=== PATIENT | male | born 1970 | race Caucasian/White ===

== ENCOUNTER 2023-11-15 16:59 | Outpatient (RCR) | payer BC, SELFPAY | END 2023-11-15 23:59 | disposition home or self-care (01) | LOC: RPT 16:59 | PROVIDERS: ATTENDING PHYSICIAN Orthopaedic Surgery Hand Surgery; FAMILY PHYSICIAN Family Medicine | DX: M77.12 Lateral epicondylitis, left elbow (principal); Z73.6 Limitation of activities due to disability; M25.512 Pain in left shoulder; M25.522 Pain in left elbow | CPT/HCPCS: 97110; 97140; 97162 ==

== ENCOUNTER 2023-12-13 17:15 | Outpatient (RCR) | payer BC, SELFPAY | END 2023-12-13 23:59 | disposition home or self-care (01) | LOC: RPT 17:15 | PROVIDERS: ATTENDING PHYSICIAN Orthopaedic Surgery Hand Surgery; FAMILY PHYSICIAN Family Medicine | DX: M77.12 Lateral epicondylitis, left elbow (principal); Z73.6 Limitation of activities due to disability | CPT/HCPCS: 97110; 97140 ==

== ENCOUNTER → 2024-01-06 09:06 | Outpatient (REF) | payer BC, SELFPAY | LOC: MRI 09:06 | PROVIDERS: ATTENDING PHYSICIAN Orthopaedic Surgery Hand Surgery; FAMILY PHYSICIAN Family Medicine | DX: M25.512 Pain in left shoulder (principal) | CPT/HCPCS: 73221 ==

== ENCOUNTER 2024-06-17 06:24 | Day surgery (SDC) | payer BC, SELFPAY ==
[2024-06-11 14:16] VITALS: BMI 37.0
[2024-06-17] VITALS (7 sets, daily range): BP systolic 104–134; BP diastolic 70–84; BMI 37.0
[2024-06-17] MEDS: CELEBREX 200 MG PO (13:00)
[2024-06-17] MEDS: TYLENOL 1000 MG PO (13:00)
[2024-06-17] MEDS: DILAUDID 0.5 MG IV (16:29)
== END 2024-06-17 17:40 | disposition home or self-care (01) ==
LOC: SDS 06:24
PROVIDERS: ATTENDING PHYSICIAN Orthopaedic Surgery Hand Surgery; FAMILY PHYSICIAN Family Medicine
PROC: 0LS44ZZ Reposition Left Upper Arm Tendon, Percutaneous Endoscopic Approach (ICD-10-PCS; 2024-06-17)
PROC: 0PBB4ZZ Excision of Left Clavicle, Percutaneous Endoscopic Approach (ICD-10-PCS; 2024-06-17)
PROC: 0RNK4ZZ Release Left Shoulder Joint, Percutaneous Endoscopic Approach (ICD-10-PCS; 2024-06-17)
DX: M75.42 Impingement syndrome of left shoulder (principal); M75.112 Incomplete rotator cuff tear or rupture of left shoulder, not specified as traumatic; S43.432A Superior glenoid labrum lesion of left shoulder, initial encounter; X58.XXXA Exposure to other specified factors, initial encounter; M19.012 Primary osteoarthritis, left shoulder
CPT/HCPCS: 29827; 29826; 29824; 29823; 29828; 36415; 93005; C1713; C1763

== ENCOUNTER 2024-07-16 18:59 | Outpatient (RCR) | payer BC, SELFPAY | END 2024-07-16 23:59 | disposition home or self-care (01) | LOC: RPT 18:59 | PROVIDERS: ATTENDING PHYSICIAN Student in an Organized Health Care Education/Training Program; FAMILY PHYSICIAN Family Medicine | DX: Z47.89 Encounter for other orthopedic aftercare (principal); Z73.6 Limitation of activities due to disability; M25.512 Pain in left shoulder; M62.81 Muscle weakness (generalized) | CPT/HCPCS: 97010; 97110; 97140; 97162 ==

== ENCOUNTER 2024-08-18 17:55 | Outpatient (RCR) | payer BC, SELFPAY | END 2024-08-18 23:59 | disposition home or self-care (01) | LOC: RPT 17:55 | PROVIDERS: ATTENDING PHYSICIAN Student in an Organized Health Care Education/Training Program; FAMILY PHYSICIAN Family Medicine | DX: Z47.89 Encounter for other orthopedic aftercare (principal); Z73.6 Limitation of activities due to disability; M62.81 Muscle weakness (generalized); M25.512 Pain in left shoulder | CPT/HCPCS: 97010; 97110; 97112; 97140 ==

== ENCOUNTER 2024-09-17 18:03 | Outpatient (RCR) | payer BC, SELFPAY | END 2024-09-17 23:59 | disposition home or self-care (01) | LOC: RPT 18:03 | PROVIDERS: ATTENDING PHYSICIAN Student in an Organized Health Care Education/Training Program; FAMILY PHYSICIAN Family Medicine | DX: Z47.89 Encounter for other orthopedic aftercare (principal); M25.512 Pain in left shoulder; M62.81 Muscle weakness (generalized); Z73.6 Limitation of activities due to disability | CPT/HCPCS: 97110; 97112 ==

== ENCOUNTER 2024-10-15 18:56 | Outpatient (RCR) | payer BC, SELFPAY | END 2024-10-15 23:59 | disposition home or self-care (01) | LOC: RPT 18:56 | PROVIDERS: ATTENDING PHYSICIAN Student in an Organized Health Care Education/Training Program; FAMILY PHYSICIAN Family Medicine | DX: Z47.89 Encounter for other orthopedic aftercare (principal); M25.512 Pain in left shoulder; M62.81 Muscle weakness (generalized); Z73.6 Limitation of activities due to disability | CPT/HCPCS: 97110; 97112 ==

== ENCOUNTER 2024-11-03 19:08 | Outpatient (RCR) | payer BC, SELFPAY | END 2024-11-03 23:59 | disposition home or self-care (01) | LOC: RPT 19:08 | PROVIDERS: ATTENDING PHYSICIAN Student in an Organized Health Care Education/Training Program; FAMILY PHYSICIAN Family Medicine | DX: Z47.89 Encounter for other orthopedic aftercare (principal); M25.512 Pain in left shoulder; M62.81 Muscle weakness (generalized); Z73.6 Limitation of activities due to disability | CPT/HCPCS: 97110 ==